=== PATIENT | female | born 1995 | race Caucasian/White ===

== ENCOUNTER 2017-09-21 21:13 | Emergency (ER) | payer OTHER ==
[2017-09-21 23:23] VITALS: BP 114/60
== END 2017-09-21 23:23 | disposition home or self-care (01) ==
LOC: ED 21:13
DX: R51 Headache (principal); R42 Dizziness and giddiness; W50.0XXA Accidental hit or strike by another person, initial encounter; Y93.66 Activity, soccer; Y99.8 Other external cause status; Y92.89 Other specified places as the place of occurrence of the external cause

== ENCOUNTER 2017-10-06 16:08 | Emergency (ER) | payer OTHER ==
[~2017-10-06] VITALS: Ht 160 cm; Wt 52.2 kg
[2017-10-06 16:16] VITALS: BP 123/70
== END 2017-10-06 17:54 | disposition home or self-care (01) ==
LOC: ED 16:08
DX: L50.9 Urticaria, unspecified (principal)
CPT/HCPCS: J7512; Q0163